=== PATIENT | female | born 2000 | race Caucasian/White ===

== ENCOUNTER 2024-05-13 15:01 | Emergency (ER) | payer SELFPAY ==
[2024-05-13 15:07] VITALS: BP 133/81; PULSE 88; RESP 18; TEMP 36.8; O2SAT 99; BMI 28.1
--- NOTE | 2024-05-13 15:12 | USR_ITS ---
PROCEDURE INFORMATION: Exam: US After First Trimester, Transabdominal Exam date and time: 05/13/2024 2:47 PM Age: 24 years old Clinical indication: Screening exam; Routine US, uterus; Additional info: Abd pain LABS AND CLINICAL REPORTS: Last menstrual period start date: 12/07/2023 Gestational age (Established): 22 w 4 d Estimated due date (Established): 09/12/2024 TECHNIQUE: Imaging protocol: Real-time transabdominal obstetrical ultrasound of the maternal pelvis and a second or third trimester with image documentation. COMPARISON: No relevant prior studies available. FINDINGS: Single living fetus in cephalic position. Anterior placenta. No visible placental abnormality on the provided images. Amniotic fluid volume within normal limits for gestation, CALEB 12.8 cm. Cervical length was estimated with transabdominal scanning, measuring approximately 3.2 cm. No definite cervical canal dilation or fluid on the provided images. BPD: , 5.4 cm. , 22 weeks, 3 days HC: , 20.1 cm. , 22 weeks, 2 days AC: , 17.6 cm. , 22 weeks, 4 days FL: , 4.0 cm. , 22 weeks, 6 days Composite age: 22 weeks, 4 days. Estimated weight: 518 grams, (1 lb 2 oz). heart activity documented by the technologist, 134 bpm. Complete/detailed evaluation of anatomy was not performed/possible at this time. The stomach was grossly visualized. Followup/complete evaluation of anatomy recommended, if not already performed, and as clinically appropriate. Neither maternal ovary was visualized at this time. No visible maternal adnexal abnormality on the provided images. The urinary bladder was not completely evaluated/imaged at this time. US/ OB limited [id number] IMPRESSION: 1. Single living fetus, composite age: 22 weeks, 4 days. 2. Anterior placenta. No visible placental abnormality on the provided images. 3. Normal amniotic fluid volume. 4. Other details discussed above.
--- NOTE | 2024-05-13 15:47 | ED_ITS ---
HPI - General: Chief complaint: OB/Uterine Contractions Stated complaint: pregant cramping & no movement Time Seen by Provider: 05/13/24 15:39 Source: patient Mode of arrival: ambulatory Limitations: no limitations History of Present Illness: Patient is a female at approximately 22 weeks based on her LMP here for complaints of cramping and decreased movements. She states she began feeling movements approximately 3 weeks ago or so. Patient states she has not had any OB care up until this point. She reportedly was sent to the emergency department from the OB department due to a discrepancy in her dates and not knowing exactly how far along she is. Patient states she has had cramping throughout her . She is not having any vaginal bleeding. She is not having any vaginal discharge or vaginal odor. No urinary symptoms. Vital signs are stable upon arrival. MD Complaint: other (cramping, reporting decreased movement) Onset (ago): day(s) Pain Consistency: intermittent Location: pelvis Severity: mild Quality: Cramping Exacerbating factors: none Vaginal discharge: none Vaginal bleeding: none Date of Last Menstrual Period: 12/07/23 Patient : Yes OB History - Current : other (no OB care thus far) care: none Associated symptoms: Reports no associated symptoms; Deny abdominal pain, dysuria, headache(s), vaginal discharge or vomiting Related Data Allergies Allergy/AdvReac Type Severity Reaction Status Date / Time No Known Allergies Allergy Verified 05/13/24 15:12 Review of Systems Card: Denies: chest pain Resp: Denies: dyspnea GI: Denies: abdominal pain, vomiting or diarrhea : Denies: flank pain, dysuria, hematuria, vaginal bleeding or vaginal discharge Musc: Denies: back pain Neuro: Denies: headache(s) or dizziness [facility] Female Reproductive History: Date of last menstrual period: 12/07/23 Physical Exam Const: COMMON NORMALS: no acute distress, average body habitus, patient oriented x3, no limitations, healthy appearing, alert and well nourished Resp: COMMON NORMALS: normal respiratory effort and clear to auscultation bilaterally AUSCULTATION: clear to auscultation bilaterally Cardio: COMMON NORMALS: regular rate and regular rhythm RATE: regular rate RHYTHM: regular rhythm GI: COMMON NORMALS: Normal to inspection, nondistended, normoactive bowel sounds present, Soft to palpation, non-tender, No hepatosplenomegaly present and no masses INSPECTION: Yes normal to inspection and Yes gravid abdomen (fundal height above level of umbilicus ) PALPATION: Yes Soft to palpation and Yes No hepatosplenomegaly present : COMMON NORMALS: Yes no CVA tenderness BLADDER/KIDNEY EXAM: Yes no CVA tenderness Back/Pelvis: COMMON NORMALS: no CVA tenderness Extremity: GENERAL: Yes normal exam except as noted Neuro: AWA COMA SCALE: document GCS findings [place] coma scale eye opening: Spontaneous Awa coma scale verbal response: Orientated [place] coma scale motor response: Obey commands Awa coma scale total score: 15 COMMON NORMALS: patient oriented x3, moves all extremities, no focal motor deficits, no sensory deficits noted and gait normal SENSORIUM/ORIENTATION: Yes alert Skin: COMMON NORMALS: no rashes or lesions noted GENERAL SKIN EXAM: no rashes or lesions noted Course Vital Signs: Vital signs: Vital Signs Temperature 98.3 F 05/13/24 15:07 Pulse Rate 88 05/13/24 15:07 Respiratory Rate 18 05/13/24 15:07 Blood Pressure 133/81 05/13/24 15:07 Pulse Oximetry 99 05/13/24 15:07 Oxygen Delivery Me thod Room Air 05/13/24 15:07 MDM - OB/Uterine Contractions Medical Decision Making OB ultrasound showing gestational age of roughly [address] Bass and we will discharge to OB for further care. Medical Records I reviewed the patient's medical records. XR interpretation done by ED provider, pending radiology final review Discharge Plan Discharge Patient Disposition: Home Clinical Impression: Abdominal cramping affecting Condition: Stable Discharge Orders: Discharge ED (Routine); Ordered 05/13/24 Ordered By: Barbara Engle Activity Restrictions/Additional Instructions: Ultrasound here confirms of roughly 22 weeks. We are discharging you to our OB department for further care. They will help set you up with OB care going forward as you have not had any thus far in your . Coding Level of Care Code ED Fitness/Wellness Director for Riky Pineda
[2024-05-13 16:00] VITALS: BP 121/70; PULSE 88; O2SAT 98
[2024-05-13 16:12] VITALS: BP 119/80; PULSE 86; O2SAT 98
== END 2024-05-13 16:17 | disposition home or self-care (01) ==
PROVIDERS: Emergency Provider Physician Assistant
DX: O99.612 Diseases of the digestive system complicating pregnancy, second trimester (principal); Z3A.22 22 weeks gestation of pregnancy
CPT/HCPCS: 76815; 99284

== ENCOUNTER 2024-05-13 16:10 | Outpatient (CLI) | payer SELFPAY ==
[2024-05-13 16:10] VITALS: BMI 28.3
[2024-05-13 16:37] VITALS: BP 112/62; PULSE 63
[2024-05-13 16:57] VITALS: BP 99/57; PULSE 62
--- NOTE | 2024-05-13 18:27 | PC.NURSE ---
RESOURSE CARD GIVEN TO HER AND TOLD HER ABOUT THEIR SERVICES
== END 2024-05-13 17:05 | disposition home or self-care (01) ==
LOC: OPOB 16:11 → OBGYN 16:26
PROVIDERS: Visit Provider Obstetrics & Gynecology
DX: O26.899 Other specified pregnancy related conditions, unspecified trimester (principal); Z3A.00 Weeks of gestation of pregnancy not specified; R10.9 Unspecified abdominal pain
CPT/HCPCS: 99211

== ENCOUNTER 2024-05-31 17:41 | Outpatient (CLI) | payer SELFPAY ==
[2024-05-31 17:35] VITALS: BMI 29.0
[2024-05-31 17:51] VITALS: BP 134/78; PULSE 108
== END 2024-05-31 18:42 | disposition home or self-care (01) ==
LOC: OPOB 17:41 → OBGYN 17:42
PROVIDERS: Visit Provider Family Medicine
DX: O36.8190 Decreased fetal movements, unspecified trimester, not applicable or unspecified (principal); Z3A.00 Weeks of gestation of pregnancy not specified
CPT/HCPCS: 99211